=== PATIENT | female | born 1980 ===

== ENCOUNTER 2018-02-08 07:27 | Emergency (ER) | payer BC ==
[2018-02-08 07:48] VITALS: BP 138/93
--- NOTE | 2018-02-08 08:14 | UC ---
Throat Pain/Nasal Kyle HPI - HPI Summary HPI Summary: Pt with right ear pain x 1 day. pt has sore throat x 2 day. no fever, chills no mason no cough no otc meds taken. Pt's denies fever, chills ears feel full, popping. + child with sore throat no allergies Pt's medications reviewed this visit Pt visiting from out of town - History of Current Complaint Chief Complaint: UCGeneralIllness Stated Complaint: SORE THROAT/RT EAR CONCERN Time Seen by Provider: 02/08/18 08:13 Hx Obtained From: Patient Hx Last Menstrual Period: 01/30/18 ?: No Pain Intensity: 8 - Allergies/Home Medications Allergies/Adverse Reactions: Allergies Allergy/AdvReac Type Severity Reaction Status Date / Time No Known Allergies Allergy Verified 02/08/18 07:41 Home Medications: Home Medications guaiFENesin ER TAB [Mucinex*] 600 mg PO BID 02/08/18 [History Confirmed 02/08/18 ] PMH/Surg Hx/FS Hx/Imm Hx Previously Healthy: Yes - Surgical History Surgical History: Yes Surgery Procedure, Year, and Place: ear surgery. kidney biopsy - Family History Known Family History: Positive: Hypertension - Social History Alcohol Use: Occasionally Substance Use Type: None Smoking Status (MU): Current Some Day Smoker Type: Cigarettes Amount Used/How Often: socially Review of Systems Constitutional: Fatigue ENT: Sore Throat, Ear Ache, Nasal Discharge All Other Systems Reviewed And Are Negative: Yes Physical Exam - Summary Physical Exam Summary: Vital Signs Reviewed: Yes A+Ox3, no distress Eyes: Conjunctiva Clear, BENNETT. EOM intact and full ENT: Hearing grossly normal right TM ++ fluid, erythema turbinates inflammed left TM wnl, turbinates inflammed and boggy, mmoist, uvula midline, + PND no exudate, no erythema Neck: Positive: Supple Respiratory: Positive: No respiratory distress, No accessory muscle use + CTA throughout no w/r Cardiovascular: RRR nl s1, s2 no m/r CBT <2 sec abd soft + BS nt/nd no guarding, no distension Musculoskeletal Exam: FULTON x 4 without difficulty Strength Intact, ROM Intact Neurological: Positive: Alert, + sensation throughout Psychological: Positive: Normal Response To Family Skin: Positive: no rash, no ecchymosis Triage Information Reviewed: Yes Vital Signs: Initial Vital Signs Temp 99.2 F 02/08/18 07:40 Pulse 100 02/08/18 07:40 Resp 16 02/08/18 07:40 BP 138/93 02/08/18 07:40 Pulse Ox 99 02/08/18 07:40 Throat Pain/Nasal Course/Dx - Course Course Of Treatment: nasal congestion and right ear pain x 2 days no fever, chills strep neg. no analgesia take. right OM on exam. abx, decongestant, flonase. motrin/apap. return precautions - Differential Dx/Diagnosis Provider Diagnoses: right OM Discharge - Sign-Out/Discharge Documenting (check all that apply): Patient Departure All imaging exams completed and their final reports reviewed: No Studies - Discharge Plan Condition: Stable Disposition: HOME Prescriptions: Amoxicillin PO (*) [Amoxicillin 875 MG (*)] 875 mg PO BID #20 tab Fluticasone NASAL SPRAY 50MCG* [Flonase NASAL SPRAY 50MCG*] 2 spray BOTH NARES DAILY #1 btl Patient Education Materials: Ear Infection (ED) Referrals: No Primary Care Phys,NOPCP [Primary Care Provider] - Additional Instructions: - Stay well hydrated. Drink plenty of non-alcoholic, non-caffinated beverages. - Alternate ibuprofen (Advil, Motrin) 600mg and Tylenol every 3 hours for pain or fever. Take with food. Do NOT take for more than 4-5 days. - These infections are spread by secretions - do NOT share eating or drinking utensils - clean items you share with other people such as cell phones, computer mouse, TV remote, computer tablets,etc. Once you have been antibiotics for 2 days, change your toothbrush and your pillowcase. - take anitbiotics as prescribed untilgone - humidify the air in the room where you sleep - boil water, run a hot steam shower, vaporizer, cups of water by air register - okay to take over the counter decongestant (Claritin-D, fabricio-D, Zyrtec-D) - use nasal spray as prescribed - contact your doctor or return with questions or concerns - Billing Disposition and Condition Condition: STABLE Disposition: Home
[2018-02-08] MEDS ORDERED: Acetaminophen TAB* 325 MG PO ONE (08:18)
== END 2018-02-08 08:25 | disposition home or self-care (01) ==
LOC: UCCORT 07:27
DX: H66.91 Otitis media, unspecified, right ear (principal); F17.210 Nicotine dependence, cigarettes, uncomplicated
CPT/HCPCS: 87651; 99202; A9270-GY; G0463